=== PATIENT | born 1960 | race Caucasian/White ===

== ENCOUNTER 2018-02-18 19:48 | Emergency (ER) | payer OTHER ==
[2018-02-18 20:22] LABS: APPEARANCE CLEAR (CLEAR); BASOPHILS 0.8 % (0.0-2); BILIRUBIN NEGATIVE (NEGATIVE); COLOR YELLOW (YELLOW); EOSINOPHILS 1.8 %; GLUCOSE 1000 mg/dL (NEGATIVE); HEMATOCRIT 39.5 % (36.0-48.0); HEMOGLOBIN 13.8 g/dL (12.0-16.0); IMMATURE GRANULOCYTES 0.3 % (0-5); KETONE LARGE mg/dL (NEGATIVE); LYMPHOCYTES 33.7 % (15-50); MCH 32.4 pg (26.0-34.0); MCHC 34.9 g/dL (31.0-37.0); MCV 92.7 fL (80.0-100.0); MEAN PLATELET VOLUME 9.7 fL (7.4-10.4); MONOCYTES 7.3 % (2-11); NEUTROPHILS 56.1 % (40-80); NITRITE NEGATIVE (NEGATIVE); PLATELET COUNT 309 10x3/uL (130-400); PROTEIN NEGATIVE (NEGATIVE); RBC 4.26 10x6/uL (4.20-6.10); RDW 12.5 % (11.5-14.5); SPECIFIC GRAVITY 1.015 (1.005-1.020); UROBILINOGEN NORMAL (NORMAL); WBC 7.2 10x3/uL (4.8-10.8)
[2018-02-18 20:34] LABS: ALBUMIN 3.2 g/dL (3.4-5.0); ALKALINE PHOSPHATASE 79 U/L (46-116); ALT (SGPT) 29 U/L (10-68); AMYLASE - SERUM 62 U/L (25-115); BILIRUBIN - TOTAL 0.33 mg/dL (0.2-1.3); CALC OSMOLALITY 277 mosm/kg (275-300); CALCIUM 8.5 mg/dL (8.5-10.1); CARBON DIOXIDE 25.1 mmol/L (21.0-32.0); CHLORIDE - SERUM 97 mmol/L (98-107); CREATININE - SERUM 0.6 mg/dL (0.6-1.3); GLUCOSE 314 mg/dL (74-106); LIPASE 156 U/L (73-393); POTASSIUM - SERUM 3.8 mmol/L (3.5-5.1); PROTEIN - SERUM 6.6 g/dL (4.6-7.0); SODIUM 133 mmol/L (136-145); UREA NITROGEN 12 mg/dL (7-18)
== END 2018-02-18 21:13 | disposition home or self-care (01) ==
LOC: D.ER 19:48
PROVIDERS: Family Medicine
DX: R10.9 Unspecified abdominal pain (principal); I88.0 Nonspecific mesenteric lymphadenitis; E10.8 Type 1 diabetes mellitus with unspecified complications